=== PATIENT | female | born 1985 ===

== ENCOUNTER 2017-10-11 11:10 | Emergency (ER) | payer MEDICAID ==
[2017-10-11 11:55] LABS: HCG,QUALITATIVE URINE NEGATIVE (NEGATIVE)
[2017-10-11 12:04] LABS: BASO # 0.1 K/uL (0.0-0.2); BASO % 0.8 % (0.0-2.0); EOS # 0.2 K/uL (0.0-0.7); HEMOGLOBIN 12.8 g/dL (11.0-16.0); LYMPH # 2.2 K/uL (1.0-4.3); LYMPH % 26.1 % (20.0-40.0); MEAN CELL VOLUME 88.3 fL (81.0-99.0); MEAN PLATELET VOLUME 8.9 fL (7.2-11.7); MONO # 0.6 K/uL (0.0-0.8); MONO % 7.6 % (0.0-10.0); NEUT # 5.3 K/uL (1.8-7.0); NEUT % 63.5 % (50.0-75.0); RBC 4.25 Mil/uL (3.80-5.20); RED CELL DISTRIBUTION WIDTH 13.7 % (11.5-14.5); WHITE BLOOD COUNT 8.3 K/uL (4.8-10.8)
--- NOTE | 2017-10-11 12:09 | C.PDOC ---
History Of Present Illness 32 y/o female presents to ED with c/o left low back pain developed 30 minutes [employer]. Patient states pain feels like her prior kidney stones, last one reported in 01/2017. Patient denies fever, chills, dysuria, hematuria, n/v/d or any other complaints at this time. Time Seen by Provider: 10/11/17 11:46 Chief Complaint (Nursing): Back Pain History Per: Patient History/Exam Limitations: no limitations Onset/Duration Of Symptoms: Days Current Symptoms Are (Timing): Still Present Quality Of Discomfort: "Pain" Past Medical History Reviewed: Historical Data, Nursing Documentation, Vital Signs Vital Signs: Last Vital Signs Temp 98.6 F 10/11/17 14:20 Pulse 82 10/11/17 14:20 Resp 18 10/11/17 14:20 BP 90/60 L 10/11/17 14:20 Pulse Ox 98 10/11/17 17:48 - Medical History PMH: Kidney Stones Surgical History: No Surg Hx Family History: States: No Known Family Hx - Social History Hx Alcohol Use: No Hx Substance Use: No - Immunization History Hx Tetanus Toxoid Vaccination: No Hx Influenza Vaccination: No Hx Pneumococcal Vaccination: No Review Of Systems Constitutional: Negative for: Fever, Chills Genitourinary: Negative for: Dysuria, Hematuria Musculoskeletal: Positive for: Back Pain Skin: Negative for: Rash Neurological: Negative for: Weakness, Numbness Physical Exam - Physical Exam Appears: Non-toxic, Other (Uncomfortable) Skin: Warm, Dry, No Rash Head: Atraumatic, Normacephalic Eye(s): bilateral: Normal Inspection Oral Mucosa: Moist Neck: Normal ROM, Supple Cardiovascular: Rhythm Regular Respiratory: Normal Breath Sounds, No Rales, No Rhonchi, No Wheezing Gastrointestinal/Abdominal: Soft, No Tenderness, No Guarding, No Rebound Back: No CVA Tenderness, No Paraspinal Tenderness, Other (Left flank tenderness) Extremity: Normal ROM, Capillary Refill (<2 seconds) Neurological/Psych: Oriented x3, Normal Speech, Normal Cognition ED Course And Treatment - Laboratory Results Result Diagrams: 10/11/17 11:53 10/11/17 11:53 O2 Sat by Pulse Oximetry: 98 (RA) Pulse Ox Interpretation: Normal Medical Decision Making Medical Decision Makin discussed with Dr Reeves; pt should be able to pass this stone. Dr Reeves wants one dose rocephin iv in ed, and d/c home on ceftin 500 mg po bid x 10 days. flomax 0.4 mg po qd x 14 days, ibuprofen and f/u with him next week in office.d/c with strainer. pt reports pain resolved Disposition Discussed With Dr.: Miguel Reeves Doctor Will See Patient In The: Office Counseled Patient/Family Regarding: Studies Performed, Diagnosis, Need For Followup, Rx Given - Disposition Referrals: Miguel Reeves MD [Staff Provider] - Disposition: HOME/ ROUTINE Disposition Time: 14:49 Condition: IMPROVED Additional Instructions: Por favor nirmal mayor cantidad de lquidos. [employer] Flomax y Ceftin segn lo prescrito. Llame a la oficina del Dr. Reeves para hacer desmond gavin de seguimiento la prxima semana. [employer] ibuprofeno cada 6 horas para el dolor. Regrese a ER para cualquier sntoma peor. Please drink increased fluids. Take Flomax and Ceftin as prescribed. Call Dr Reeves's office to make a follow up appointment next week. Take ibuprofen every 6 hours for pain. Return to ER for any worse symtoms. 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 - Scribe Statement The provider has reviewed the documentation as recorded by the Caden Davey All medical record entries made by the Dilanibphilip were at my direction and personally dictated by me. I have reviewed the chart and agree that the record accurately reflects my personal performance of the history, physical exam, medical decision making, and the department course for this patient. I have also personally directed, reviewed, and agree with the discharge instructions and disposition.
[2017-10-11 12:10] LABS: SQUAMOUS EPITHIAL 15 /hpf (0-5); URINE BACTERIA FEW (<OCC); URINE BILIRUBIN NEGATIVE (NEGATIVE); URINE BLOOD 1+ (NEGATIVE); URINE CLARITY Hazy (Clear); URINE COLOR Yellow (YELLOW); URINE GLUCOSE (UA) NORMAL (Normal); URINE LEUKOCYTE ESTERASE TRACE Leu/uL (Negative); URINE PROTEIN NEGATIVE (NEGATIVE)
[2017-10-11] MEDS ORDERED: Sodium Chloride 0.9% 1,000 ML IV ONE (12:12)
[2017-10-11 12:16] LABS: ALB/GLOB RATIO 1.3 (1.0-2.1); ALT/SGPT 26 U/L (9-52); AST/SGOT 25 U/L (14-36); BLOOD UREA NITROGEN 15 mg/dL (7-17); CALCIUM 8.7 mg/dl (8.6-10.4); GFR AFRICAN-AMERICAN > 60; GFR NON-AFRICAN AMERICAN > 60
--- NOTE | 2017-10-11 13:36 | CT ---
PROCEDURE: CT Abdomen and Pelvis without intravenous contrast HISTORY: left flank pain and hemturia COMPARISON: None. TECHNIQUE: Contiguous images were obtained from the domes of the diaphragms to the upper thighs without the administration of intravenous contrast. Oral contrast was not administered. Radiation dose: Total exam DLP = 248.4 mGy-cm. This CT exam was performed using one or more of the following dose reduction techniques: Automated exposure control, adjustment of the mA and/or kV according to patient size, and/or use of iterative reconstruction technique. FINDINGS: LOWER THORAX: Unremarkable. LIVER: Unremarkable. No gross lesion or ductal dilatation. GALLBLADDER AND BILE DUCTS: Unremarkable. PANCREAS: Unremarkable. No gross lesion or ductal dilatation. SPLEEN: Unremarkable. ADRENALS: Unremarkable. No mass. KIDNEYS AND URETERS: Punctate right lower pole nephrolith with focal caliectasis filled with high-density fluid. Punctate nonobstructive left upper pole nephrolith. Mild left hydroureteronephrosis with high-density fluid secondary to a 6 x 3 mm mid ureteral calculus. No solid mass. VASCULATURE: Unremarkable. No aortic aneurysm. BOWEL: Prior sigmoid colon surgery. No obstruction. No gross mural thickening. APPENDIX: Unremarkable. Normal appendix. PERITONEUM: Unremarkable. No free fluid. No free air. LYMPH NODES: Unremarkable. No enlarged lymph nodes. BLADDER: Unremarkable. REPRODUCTIVE: Unremarkable. BONES: No acute fracture. OTHER FINDINGS: None. IMPRESSION: Mild left hydroureteronephrosis secondary to a 6 x 3 mm mid ureteral calculus. High-density fluid within the left renal collecting system may be secondary to blood products. Punctate right lower pole nephrolith with focal caliectasis. High-density fluid within the focally dilated lower pole calyx may be secondary to blood products.
[2017-10-11] MEDS ORDERED: cefTRIAXone IV 1 gm in Dextros 50 ML IVPB ONE ×2 (14:07→14:14)
[2017-10-11 14:20] VITALS: BP 90/60; PULSE 82; RESP 18; TEMP 98.6
[2017-10-11 14:52] VITALS: O2SAT 98
== END 2017-10-11 15:08 | disposition home or self-care (01) ==
LOC: C.ER 11:10
DX: N20.0 Calculus of kidney (principal)
CPT/HCPCS: 74176; 80053; 81001; 84703; 85025; 96361; 96365; 96375; 99284; J0696; J1885; J7030